=== PATIENT | female | born 1975 | race Caucasian/White ===

== ENCOUNTER 2025-04-08 16:04 | Inpatient (IN) | payer MEDICAID ==
[~2025-04-08] VITALS: Ht 170.2 cm; Wt 86.4 kg
--- NOTE | 2025-04-08 17:04 | ELECTROCARDIOGRAPH REPORT ---
[facility] Test Date: 2025-04-08 Test Time: 17:02:21 Pat Name: SELINA CLIFTON Department: [facility]- Patient ID: [id number] Room: Gender: F Records Management Assistant: : 1975 Requested By: NORA CADENA Order Number: [id number] Reading MD: Measurements Intervals [place] Rate: 104 P: 40 NE: 137 QRS: 58 QRSD: 122 T: 49 QT: 355 QTc: 467 Interpretive Statements Sinus tachycardia IVCD, consider atypical RBBB Abnormal inferior Q waves Please click the below link to view image of tracing.
--- NOTE | 2025-04-08 17:25 | RADIOLOGY REPORT ---
CHEST RADIOGRAPH REASON FOR EXAM: Chest pain COMPARISON: None TECHNIQUE: One view of the chest is provided FINDINGS: The cardiomediastinal silhouette is borderline enlarged. There is pulmonary venous congesti on. There is no significant airspace disease. There is no large pleural effusion. There is no pneumo thorax. No acute osseous abnormality is identified. IMPRESSION: Borderline cardiomegaly with pulmonary venous congestion. Correlate clinically for possible cardiac decompensation.
--- NOTE | 2025-04-08 18:27 | Physician Documentation ---
History of Present Illness ~ Chief Complaint: Leg Pain Stated Complaint: TRANSFER Time Seen by MD: 17:44 Source: patient Mode of Arrival: EMS Exam Limitations: no limitations HPI Patient presented as a transfer from [facility] for cellulitis/sepsis. Was treated with 30 mL per kg of normal saline and given vancomycin and Zosyn at [facility]. States three days ago she got quite intoxicated and fell asleep. When she woke up she could not move well and had [place]. She has chronic venous stasis ulcers and has had bilateral lower extremity ablations secondary to venous insufficiency with Dr. Ricks. She has been battling lower extremity wounds to the bilateral shins. Denies fevers, chills. No chest pain or shortness for breath. Complains of dizziness since episode three days ago wh ere she had difficulty getting up. At [facility] she was found to be tachycardic and underwent a CT angio to rule out PE. There was an incidental finding of nodular regions around the circumflex and LAD arteries consistent with coronary aneurysms. She was therefore sent for further evaluation and cardiology consultation. States past medical history significant for heart failure diagnosed many years ago. History of venous insufficiency status post bilateral lower extremity ablation with chronic nonhealing wounds to the bilateral lower extremities. Complains of dizziness. Complains of pain to the lower extremities. No chest pain or pressure. No shortness a breath. Was asked, but otherwise denies review of systems currently. Tetanus witin 5 years: Yes Medication Reconciliation Allergies: Coded Allergies: ibuprofen (Verified Allergy, Unknown, 04/08/25) latex (Verified Allergy, Unknown, 04/08/25) shellfish derived (Verified Allergy, Unknown, 04/08/25) Scheduled Lisinopril* (Lisinopril*), 1 TAB PO DAILY, (Reported) Past Medical History Past Medical History: *CARDIOVASCULAR*, Congestive Heart Failure, Valve Insuffciency Other Past Surgical History: She has had venous ablation on bilateral lower extremities. Facial reconst Alcohol Use: Occasionally Drug Use: none Review of Systems ROS Patient complains of dizziness, weakness, fevers, lower extremity cellulitis, nonhealing wounds. No chest pain or pressure. No shortness a breath. Was asked, but otherwise denies review of systems. Physical Exam Vital Signs: RN Vital Signs have been reviewed: Yes, Temperature: 101.8, Source: Oral, Heart Rate: 108, Respiratory Rate: 16, BP: 125/75, Pulse Oximetry: 93, Weight: 86.360 Pulse Oximetry Reflects: adequate oxygenation Physical Exam General: Awake, alert, oriented. No apparent distress Neck: Supple. Normal range of motion. No JVD Respiratory: Lungs are clear to auscultation bilaterally. No respiratory distress. Chest: Normal shape and size. No accessory muscle use. Cardiovascular: Regular rate. Tachycardic.. S1-S2. No murmur, gallop, rub. Gastrointestinal: Abdomen is soft. Nontender to palpation. Bowel sounds present. Extremities: Bilateral lower extremities are tender to palpation. Dorsalis pedis pulses are plus two bilaterally. There is a 2x2 in circular wounds with no purulent drainage to the anterior shins. Neurologic: Alert and oriented x4. Nonfocal Psychiatric: Normal mood and affect. Skin: Normal color. Warm and dry. Progress Results/Orders Results/Orders Orders - LAILA BARTHOLOMEW [employer]DER Culture Blood (04/08/25 18:24) Recheck Temp (04/08/25 ) Normal Saline 1000ml (0.9% Sodium Chlori (04/08/25 19:10) Page Hospitalist (04/08/25 19:58) Fill Out Med Reconciliation (04/08/25 19:58) Completed Orders - LAILA BARTHOLOMEW [employer] Procalcitonin (04/08/25 18:24) Lacticsepsis (04/08/25 18:24) Drug Screen, Urine (04/08/25 18:24) Morphine 2mg/Ml Inj. (Morphine Inj.) (04/08/25 18:30) Medications Received in ER Medications (Trade) Dose Ordered Sig/Jeffery Route PRN Reason Start Time Stop Time Status Last Admin Dose Admin (morphine inj.) 2 mg ONCE ONCE IV 04/08/25 18:30 04/08/25 18:42 DC 04/08/25 19:03 2 MG Sodium Chloride 1,000 ml @ 100 mls/hr Q10H ONCE IV 04/08/25 19:10 04/09/25 05:09 04/08/25 19:55 100 MLS/HR Vital Signs 04/08/25 04/08/25 04/08/25 8/29/25 16:07 17:10 17:12 19:03 Temp 101.8 Pulse 103 108 Resp 20 21 16 20 B/P (MAP) 131/75 125/75 (92) Pulse Ox 93 93 04/08/25 04/08/25 04/08/25 19:10 19:41 20:16 Temp 98.8 96.6 Pulse 107 92 Resp 19 21 15 B/P (MAP) 120/74 (89) 114/71 (85) Pulse Ox 98 97 Laboratory Tests Test 04/08/25 17:05 04/08/25 19:38 Urine Opiates Screen Negative Urine Methadone Screen Negative Urine Fentanyl Screen Negative Urine Barbiturates Screen Negative Urine Phencyclidine Screen Negative Urine Amphetamines Screen Positive Urine Benzodiazepines Screen Negative Urine Cocaine Screen Negative Urine Cannabinoids Screen Negative Drug Screen Comment White Blood Count 12.4 H Red Blood Count 3.98 L Hemoglobin 12.8 Hematocrit 38.0 Mean Corpuscular Volume 95.5 Mean Corpuscular Hemoglobin 32.1 H Mean Corpuscular Hemoglobin Concent 33.6 Red Cell Distribution Width 14.4 Platelet Count 127 L Mean Platelet Volume 8.6 Neutrophils (%) (Auto) 82.6 H Lymphocytes (%) (Auto) 10.8 L Monocytes (%) (Auto) 6.5 Eosinophils (%) (Auto) 0 Basophils (%) (Auto) 0.1 Neutrophils # (Auto) 10.2 H Lymphocytes # (Auto) 1.3 Monocytes # (Auto) 0.8 Eosinophils # (Auto) 0.0 Basophils # (Auto) 0.0 CBC Comment Sodium Level 133 L Potassium Level 3.6 Chloride Level 98 L Carbon Dioxide Level 23.1 L Anion Gap 12 Blood Urea Nitrogen 33 H Creatinine 2.10 H Estimated GFR/1.73 m2 25 BUN/Creatinine Ratio 15.7 Glucose Level 113 H Lactic Acid Level 2.1 H Calcium Level 8.1 L Albumin 2.5 L Procalcitonin 2.11 H Chemistry Comments Medical Decision Making Findings Patient with past medical history significant for venous insufficiency and chronic nonhealing wounds to lower extremities presents secondary to lower extremity pain, dizziness. Initially presented to [facility]. Records were reviewed. She noticed increased swelling to the lower extremities worsening over the past three days. States history of venous insufficiency status post ablations in the past. Known history of recurrent cellulitis. She was found to be tachycardic, febrile with an elevated white count. Lactic acid initially was found to be 3.4. Received IV fluids 30 mL/kilogram at [facility] and lactic acid trended down. Repeat lactic acid was 2.1. She received vancomycin and Zosyn to treat her infection and was transferred for higher level of care. She was transferred secondary to an incidental finding on a CT scan. She did have tachycardia and elevated D-dimer. A CTA was therefore performed to rule out a pulmonary embolism. Fortunately, there was no pulmonary embolism that there was an incidental finding of coronary aneurysms as noted in HPI. Was transferred for further evaluation and management. Itching at [facility] included a vascular ultrasound that did not show a definite DVT. She underwent a CTA that was negative for pulmonary embolism but incidental finding of a 16 mm x 13 mm enhancing nodule in the region of the circumflex as well as a nodule measuring about 13 mm in the area of the left anterior descending. Consumer Affairs Manager recommended coronary CT. She has denied chest pain or pressure. No shortness a breath. Does complain of lower extremity pain which has not been treated. He is febrile on arrival. We will recheck temperature. Was found to have a white count of 12.1. Hemoglobin 14.1. Hematocrit 40.6. Platelet count 135. D-dimer 1.98. Sodium 132. Potassium 3.5. Chloride 97. CO2 20. Anion gap 15. BUN 37. Creatinine 2.59. ALT 56. AST 108. Alk-phos 113. Initial lactic acid 4.30, 3.40. Trended down to 2.1. The case was discussed with the attending physician, Akil. The plan of care, diagnostic evaluation and medical decision making were discussed. The attending physician was available for consultation, where the diagnostic findings as well as the eventual disposition. Case was reviewed with hospitalist/resident who agrees to evaluate patient for admission to the hospital. Departure Time of Disposition: 19:10 Disposition: 09 ADMITTED INPATIENT Admitted to Inpatient Unit: to hospitalist Admission Level of Care: PCU with Tele Impression: Primary Impression: Cellulitis Qualified Codes: L03.119 - Cellulitis of unspecified part of limb Additional Impressions: Sepsis Qualified Codes: A41.9 - Sepsis, unspecified organism; R65.20 - Severe sepsis without septic shock; N17.9 - Acute kidney failure, unspecified Acute kidney injury Hyponatremia Coronary aneurysm Referrals: NO PRIMARY CARE PROVIDER (PCP) Signature Scribe Signature: No scribe Attestation: The note accurately reflects work and decisions made by me.Laila Bartholomew - ELLY 04/08/25 21:43 LAILA BARTHOLOMEW NP Apr 08, 2025 18:27
[2025-04-08 19:02] LABS: URINE AMPHETAMINE SCREEN POSITIVE (Neg); URINE BARBITUATE SCREEN NEGATIVE (Neg); URINE BENZODIAZEPINES SCREEN NEGATIVE (Neg); URINE CANNABINOID SCREEN NEGATIVE (Neg); URINE COCAINE SCREEN NEGATIVE (Neg); URINE METHADONE SCREEN NEGATIVE (Neg); URINE OPIATE SCREEN NEGATIVE (Neg); URINE PHENCYCLIDINE SCREEN NEGATIVE (Neg)
[2025-04-08 19:50] LABS: MEAN PLATELET VOLUME 8.6 FL (7.4-10.4); RED CELL DISTRIBUTION WIDTH 14.4 % (11.5-14.5)
[2025-04-08] MEDS: normal saline 1000ml 1,000 ML IV ONE (19:55)
[2025-04-08 20:00] LABS: CREATININE 2.10 MG/DL (0.40-0.90); TOTAL CARBON DIOXIDE 23.1 MMOL/L (24-32); eCRCL 31 ML/MIN; eGFR 25 ML/MIN
[2025-04-08] MEDS ORDERED: magnesium sulf-water 2g/50mL 50 ML IV PRN (20:15)
[2025-04-08] MEDS ORDERED: ondansetron/PF 4mg/2ml inj IV PRN (20:15)
[2025-04-08] MEDS ORDERED: potassium Cl 40MEQ/1/2NS 520ml 520 ML IV PRN (20:15)
[2025-04-08] MEDS ORDERED: potassium Cl 20 mEq SR tablet PO PRN (20:15)
[2025-04-08] MEDS ORDERED: magnesium sulf-water 4G/100mL 100 ML IV PRN (20:15)
[2025-04-08] MEDS ORDERED: magnesium Cl slow-release 64mg tablet PO PRN (20:15)
[2025-04-08] MEDS ORDERED: LISI40TA20 PO (20:16)
--- NOTE | 2025-04-08 21:17 | HISTORY AND PHYSICAL-Residence ---
History & Physical Providers to CC Resident Creating Document: WESLY REYESVANIRACHEL ~ History of Present Illness Reason for Admit\Complaint: Chronic venous ulcer, left leg cellulitis, coronary aneurysm History of Present Illness This is a 49-year-old female with past medical history of hypertension, congestive heart failure, vertigo, bilateral chronic venous insufficiency status post bilateral ablation of the veins with chronic venous ulcer who transferred from [facility] in view of left leg cellulitis, bilateral lower limb chronic venous ulcer and incidentally detected coronary aneurysm. She noticed that her symptoms started 3 days ago when she got intoxicated on a motor boat and fell asleep. When she woke up she had excruciating pain in bilateral lower limbs and could not move her legs. She rates the pain 10/10, sharp, radiating up to her thighs, which aggravates when she keeps her feet down the bed and tries to walk. She also complains of red rashes on the lateral aspect of her left leg. No complaints of fever, nausea, vomiting, dizziness. She has multiple nonhealing venous ulcers on her bilateral lower legs associated with swelling and redness since 6 months. Known history of recurrent cellulitis. At [place] her lactic acid was 4.3 and she was treated with 30 mL per kg of normal saline and given vancomycin and Zosyn. At [facility] she was found to be tachycardic elevated D-dimer and underwent a CT angio to rule out PE. There was no PE but There was an incidental finding of nodular regions around the circumflex and LAD arteries consistent with coronary aneurysms. Bilateral lower limb ultrasound was done to rule out DVT. She was therefore sent for further evaluation and cardiology consultation. She complains of heartburn. No complaints of chest pain, palpitation, dizziness, shortness of breath. Allergies: Coded Allergies: ibuprofen (Verified Allergy, Unknown, 04/08/25) latex (Verified Allergy, Unknown, 04/08/25) shellfish derived (Verified Allergy, Unknown, 04/08/25) Home Medications Home Medications Active Reported Lisinopril* (Lisinopril) 40 Mg Tablet 1 Tab PO DAILY 30 Days Past Medical History Past Medical History CHF Hypertension Vertigo Bilateral chronic venous insufficiency status post bilateral ablation of veins Chronic venous ulcers Peripheral neuropathy Past Surgical History Surgical History Comment Bilateral chronic venous insufficiency status post ablation Repair of Orbital fracture after a mechanical fall Past Social History Smoking: Cigarettes (1-2 cigarettes a day) Alcohol Use: Abuse (4-5 beers a day, get shaky sometimes without alcohol) Drug Use: None Lives with: Alone Lives In: Homeless Occupation: unemployed Domestic Violence: Neg ROS Constitutional: Reports: no symptoms reported Eyes: Reports: no symptoms reported ENT: Reports: no symptoms reported Respiratory: Reports: no symptoms reported Cardiovascular: Reports: no symptoms reported Gastrointestinal: Reports: no symptoms reported Genitourinary: Reports: no symptoms reported Female Genitalia: Reports: no reported symptoms Neurological: Reports: no symptoms reported Musculoskeletal: Reports: swelling Integumentary: Reports: rash Allergic/Immunologic: Reports: no symptoms reported Hematologic/Lymphatic: Reports: no symptoms reported Endocrine: Reports: no symptoms reported Psychiatric: Reports: no symptoms reported Exam Vitals: Vital Signs Date Time Temp Pulse Resp B/P (MAP) Pulse Ox O2 Delivery O2 Flow Rate FiO2 04/08/25 20:16 96.6 92 15 114/71 (85) 97 General: General: Well alert, well oriented, not confused, not agitated, not in acute distress, well cooperated during the physical. HEENT: Conjunctive are pink, sclerae clear, no icterus, pupil is equal in both sides, reactive to light, no ear discharge, no pharyngeal erythema or an edema. Neck: Supple, no JVD, no lymphadenopathy and thyromegaly. Chest: Equal air entry on both lungs, no added sounds, no wheeze. Cardiovascular: S1-S2 regular sinus rhythm and, regular rate, no gallops, no rubs, no murmurs Abdomen: No visible peristalsis, Bowel sounds present on auscultation, soft, nontender, no guarding, no rigidity Extremities: No obvious deformities, no pitting edema bilaterally, capillary refill intact, peripheral pulsations are intact on both sides Central Nervous System: No focal neurological deficits, no motor or sensory weakness in all 4 extremities, could move all 4 extremities, 2+ deep tendon reflexes, negative Babinski. Musculoskeletal: No joint swelling, deformities, inflammations, and no scoliosis and back tenderness Skin: Left le venous ulcer, 5 x 4 cm noted on the anterior aspect of the fierro. Associated with lipodermatosclerosis, redness, swelling. Right le venous ulcer 3-4 cm noted on the lateral aspect of the fierro. Associated with lipodermatosclerosis, redness, swelling. One scar of healed ulcer noted on the medial aspect of the fierro. Diagnostic Data Last Recorded Lab Results: 04/08/25193704/08/251937 Counseling Services Smoking & Tobacco Cessation: > 10 Minutes Advance Care Planning Advanced Care plannin - 30 Minutes (Full code) Additional Plan Assessment: This is a 49-year-old female with past medical history of hypertension, congestive heart failure, vertigo, bilateral chronic venous insufficiency status post bilateral ablation of the veins with chronic venous ulcer who transferred from [facility] in view of left leg cellulitis, bilateral lower limb chronic venous ulcer and incidentally detected coronary aneurysm. Plan: Left leg cellulitis Bilateral lower limb chronic venous ulcer Chronic venous insufficiency status post bilateral ablation 6 months ago Patient meets severe sepsis criteria (heart rate> 90, respiratory rate >20, WBC greater>40466, suspected source of infection, lactic acidosis) Bilateral chronic venous ulcer, lipodermatosclerosis, redness, sharp pain, swelling Vitals: Pulse 100, blood pressure 115/70, respiratory rate in 20s D-dimer elevated in [place], underwent CTA-PE ruled out Ultrasound in [place]'s rule out DVT Lactic acidosis downtrending from 4.3-3.4-2.1, current lactic acid 1.4 Treated with 30 mL/hour IV fluids, vancomycin and Zosyn [place] WBC 12.4 with neutrophilia. Procalcitonin 2.11 Ordered arterial doppler to rule out PVD. Plan: Continue antibiotics vancomycin 1 g IV Q 12 H, Zosyn 3.37 g IV q.8h IV fluids 30 mL/hour Ordered ESR CRP, blood culture, wound care. Congestive heart failure Primary Hypertension EKG: Sinus rhythm, tachycardia, no ST segment changes, normal T-wave morphology Chest x-ray:orderline cardiomegaly with pulmonary venous congestion. Correlate clinically for possible cardiac decompensation. Ordered echo, HbA1c, lipid level, NT proBNP. Continue home medication lisinopril 40 mg p.o. daily Incidentally detected coronary aneurysm Incidental finding of a 16 mm x 13 mm enhancing nodule in the region of the circumflex as well as a nodule measuring about 13 mm in the area of the left anterior descending. No active chest pain, palpitation, diaphoresis, nausea. Complaints of heartburn, most likely due to alcohol consumption. Cardiology consultation tomorrow morning Alcohol use disorder Methamphetamine use disorder Homelessness On moderate alcohol withdrawal protocol Urine tox positive for methamphetamine Ordered drug abuse social worker and substance use navigator Ordered Ethyl alcohol level KAIN may be secondary to infection/dehydration Serum creatinine 2.1, BUN 33, EGFR 25 Baseline creatinine unknown IV fluids 30 mL/hour Ordered urine osmolality, serum osmolality, urine sodium to determine FeNa Code status: Full code DVT prophylaxis: SCDs Analgesia/sedation: Morphine/[place] p.r.n. Line/tube: PIV GI prophylaxis: Protonix 40 mg p.o. daily Nutrition: Heart healthy PT: Ordered. Prognosis: Guarded Disposition: Admit to PCU/telemetry. Substance use navigator and social Service ordered Jamie Reyes MD PGY1, Internal Medicine [facility] Addendum I saw and discussed the pt with the resident team and agree with assessment and plan as documented Date of Service: Apr 08, 2025 Billing Provider: EMIR KELLEY MD, SHIVANI, [facility] Apr 08, 2025 21:17 EMIR KELLEY MD Apr 09, 2025 07:25
[2025-04-08] MEDS: HYDROcodone/acetaminophen 5mg/325mg tablet PO PRN (23:15)
[2025-04-08 23:22] LABS: INR 1.0 INR
[2025-04-08] MEDS: normal saline 1000ml 1,000 ML IV SCH (23:36)
[2025-04-08 23:43] LABS: CHOL/HDL RATIO 5.3 (0.00-4.99); LDL CHOLESTEROL 81 MG/DL (50-100); PRO BRAIN NATRIURETIC PEPTIDE 228 PG/ML (0-125)
[2025-04-08 23:44] LABS: OSMOLALITY 285 MOSM/K (280-300)
[2025-04-08 23:51] LABS: ETHANOL < 10 MG/DL (<10)
[2025-04-09] VITALS (8 sets, daily range): BP systolic 99–130; BP diastolic 66–76; PULSE 78–84; RESP 14–22; TEMP 97.5–97.8; O2SAT 96–98
[2025-04-09] MEDS: vancomycin/NS 1 GM ADD-VANTAGE 250 ML IV ONE (01:29)
[2025-04-09] MEDS: piperacillin/tazo 3.375gm/50ml 50 ML IV ONE (03:58)
[2025-04-09 06:23] LABS: MEAN PLATELET VOLUME 8.6 FL (7.4-10.4); RED CELL DISTRIBUTION WIDTH 14.5 % (11.5-14.5)
[2025-04-09 06:51] LABS: CREATININE 1.48 MG/DL (0.40-0.90); TOTAL CARBON DIOXIDE 22.2 MMOL/L (24-32); eCRCL 44 ML/MIN; eGFR 37 ML/MIN
[2025-04-09] MEDS: potassium Cl 20 mEq SR tablet PO PRN (07:26)
[2025-04-09] MEDS: pantoprazole 40mg Tablet.DR PO SCH (07:26)
[2025-04-09] MEDS: docusate sod 100mg capsule PO SCH (07:26)
[2025-04-09] MEDS: ringers solution, lacted 1,000 ML IV SCH (07:30)
[2025-04-09] MEDS: K and/or MAG REPLACEMENT MC SCH (08:00)
--- NOTE | 2025-04-09 13:53 | VASCULAR REPORT ---
EXAM: VASC VL ARTERIAL INDICATION: Pa in TECHNIQUE: Grayscale and color Doppler sonographic imaging evaluation of the right and left lower ext remity arterial system was performed COMPARISON: None available at the time of dictation. FINDINGS: RIGHT LOWER EXTREMITY ARTERIES: Common femoral artery: 96 cm/s, triphasic Deep femoral artery: 54 cm/s, triphasic Proximal femoral artery: 93 cm/s, triphasic Mid femoral artery: 81 cm/s, triphasic Distal femoral artery: 67 cm/s, triphasic Popliteal artery: 59 cm/s, triphasic Posterior tibial artery: 72 cm/s, triphasic Dorsalis pedis artery: 53 cm/s, triphasic LEFT LOWER EXTREMITY ARTERIES: Common femoral artery: 101 cm/s, triphasic Deep femoral artery: 104 cm/s, triphasic Proximal femoral artery: 101 cm/s, triphasic Mid femoral artery: 95 cm/s, triphasic Distal femoral artery: 97 cm/s, triphasic Popliteal artery: 61 cm/s, triphasic Posterior tibial artery: 74 cm/s, triphasic Dorsalis pedis artery: 34 cm/s, triphasic REFERENCE VALUES: Normal velocity ranges (in cm/sec) are as follows: DECORATING CONSULTANT 95-140, SFA 75-105, popliteal 54-84, tibial 41-81 cm/sec. Stenosis categories: 1.5-2.0 x normal velocity = 30-49%, 2.0-4.0 x normal velocity = 50-75%, >4.0 x normal velocity = >75%. No ankle-brachial index was obtained secondary to patient patent. Left groin lymph nodes with the la rgest measuring up to 3.2 cm. IMPRESSION: 1. No sonographic evidence of a lower extremity arterial occlusion. Velocities as above.
--- NOTE | 2025-04-09 14:39 | RADIOLOGY REPORT ---
EXAM: MR MRI LOWER EXTREMITY RIGHT INDICATION: chronic wounds and elevated ESR, r/o osteomyelitis, tib/fib TECHNIQUE: Multiplanar, multisequence imaging of the right lower extremity without contrast COMPARISON: None FINDINGS: BONES: No MR evidence of an acute fracture, osseous contusion, or aggressive focal osseous lesion no abnormal bone marrow edema of the suggest osteomyelitis. In the area of concern, minimal soft tissue edema most likely compatible with cellulitis. Additional edema along the lateral margin of the distal calf reactive versus related to cellulitis. No drainable fluid collection MUSCLES: Inconspicuous feathery muscle edema of the proximal soleus, medial and lateral heads of the gastrocnemius which may be compatible with reactive myositis. TENDONS: Intact. LIGAMENTS: Intact. JOINT SPACES: No joint effusion. NEUROVASCULAR: Normal. OTHER: None. IMPRESSION: 1. No MR evidence of osteomyelitis. 2. Presumed reactive myositis of the posterior compartment of the calf. 3. Cellulitis /fasciitis without drainable fluid collection.
[2025-04-09] MEDS: vancomycin/NS 1 GM ADD-VANTAGE 250 ML IV SCH (14:54)
--- NOTE | 2025-04-09 15:18 | RADIOLOGY REPORT ---
EXAM: MR MRI LOWER EXTREMITY LEFT INDICATION: chronic wounds and elevated ESR, r/o osteomyelitis, tib/fib TECHNIQUE: Multiplanar, multisequence imaging of the left COMPARISON: MR MRI LOWER EXTREMITY RIGHT on DOS: 04/09/25 FINDINGS: BONES: No MR evidence of an acute fracture, osseous contusion, or aggressive focal osseous lesion. No MR evidence of osteomyelitis. MUSCLES: Feathery muscle edema along the posterior margin of the soleus and inferior margin of the me dial head of the gastrocnemius. TENDONS: Intact. LIGAMENTS: Intact. JOINT SPACES: No joint effusion. NEUROVASCULAR: Normal. OTHER: Extensive surrounding subcutaneous tissue edema without definitive drainable fluid collection. Overall imaging findings may be compatible with cellulitis/fasciitis and underlying reactive myosit is. IMPRESSION: 1. No MR evidence of osteomyelitis. 2. Cellulitis/fasciitis. No drainable fluid collection/abscess. 3. Favor reactive myositis.
[2025-04-09] MEDS: HYDROcodone/acetaminophen 10/325mg tab PO PRN (16:55)
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
[2025-04-09] MEDS: piperacillin/tazo 3.375gm/50ml 50 ML IV SCH ×2 (20:40)
[2025-04-10] VITALS (8 sets, daily range): BP systolic 105–123; BP diastolic 64–85; PULSE 73–77; RESP 12–22; TEMP 97.4–98.2; O2SAT 95–98
[2025-04-10] MEDS: VANCOMYCIN LEVEL IV ONE (01:30)
[2025-04-10 02:50] LABS: APTT 30 SECONDS (22-32)
[2025-04-10 02:55] LABS: MEAN PLATELET VOLUME 9.7 FL (7.4-10.4); RED CELL DISTRIBUTION WIDTH 14.9 % (11.5-14.5)
[2025-04-10 02:57] LABS: CREATININE 1.01 MG/DL (0.40-0.90); TOTAL CARBON DIOXIDE 24.3 MMOL/L (24-32); eCRCL 64 ML/MIN; eGFR 58 ML/MIN
[2025-04-10 03:34] LABS: BANDS% (MANUAL) 1.0 % (0-10); LYMPHOCYTES % (MANUAL) 17.0 % (21-51); MONOCYTES % (MANUAL) 7.0 % (2-12); NEUTROPHILS % (MANUAL) 75.0 % (42-75); PLATELET ESTIMATE DECREASED
[2025-04-10 08:57] LABS: LEUKOCYTE ESTERASE ,URINE NEGATIVE (Neg); NITRITES, URINE NEGATIVE (Neg); OCCULT BLOOD,URINE TRACE-INTACT (Neg)
[2025-04-10 09:05] LABS: UA COLLECTION TYPE NON-SPECIFIED
[2025-04-10 09:07] LABS: MUCUS STRANDS NONE SEEN /LPF (Neg); SQUAMOUS EPITHELIAL CELL,UR MANY /LPF (FEW); YEAST MODERATE /HPF (NEGATIVE)
[2025-04-10 09:08] LABS: OSMOLALITY UA 652.0 MOSM/K (50-1400)
[2025-04-10 09:09] LABS: CREATININE,URINE RANDOM 119.0 MG/DL
[2025-04-10 14:40] LABS: C DIFF SPECIMEN=DIARRHEA? ACCEPTABLE; C DIFFICILE TOXINS A&B NEGATIVE (Neg)
[2025-04-10 14:41] LABS: C DIFF ANTIGEN SEE COMMENTS (NEGATIVE)
--- NOTE | 2025-04-10 14:43 | RADIOLOGY REPORT ---
Procedure: CT CT LOWER EXTREMITY 04/10/2025 10:40 AM Indication: left LE. Hip to toes,worsening erythema and ain Comparison Study: MR MRI LOWER EXTREMITY LEFT on DOS: 04/09/25, MR MRI LOWER EXTREMITY RIGHT on DOS: Technique: Axial CT images were obtained of the left lower extremity and reformatted in coronal and s agittal planes. All CT scans at this medical facility are performed using dose modulation techniques as appropriate to a performed exam including the following: Automated exposure control was utilized; adjustment of the MA and/or KV according to patient size; and use of iterative reconstruction technViewpoint ue. CT Dose: CTDI volume is 16.76+ 16.76+ 0.14 mGy. Dose-length product is 1757.61 mGy*cm FINDINGS: Bones: Normal mineralization alignment. There is no acute fracture. No focal osteopenia or cortical destruction to suggest osteomyelitis. Soft tissues: There is mzst-oe-mlqckubq subcutaneous edema within the left lower extremity and mild s ubcutaneous edema in the visualized right lower extremity. Muscle bundles about the Left lower extrem ity are intact. There is no soft tissue gas or loculated fluid collection. There are mildly enlarged left inguinal lymph nodes, favored to be reactive. There are scattered phleboliths in the anterior l eft fierro. There is a small left knee joint effusion. There is osteoarthritic changes of the left knee , tricompartment osteophyte formation. There is moderate lateral patellofemoral compartment joint spa ce narrowing and oagh-jn-dyph articulation of the lateral most aspect. Moderate medial compartment chiquis int space narrowing. There is a small right knee joint effusion. The muscle bundles about the Right lower extremity that is visualized are intact. No soft tissue gas or fluid collection in the visualized right lower extrem ity. In the pelvis, the visualized bowel loops are normal caliber. The visualized uterus is grossly unrema rkable. The urinary bladder is mildly distended. There are enlarged left external iliac lymph nodes for example series 2, image 15. IMPRESSION: 1. No acute osseous abnormality or evidence of osteomyelitis. 2. Moderate subcutaneous edema within the left lower extremity which could reflect cellulitis. No so ft tissue gas or well-formed fluid collection to suggest abscess. 3. Small jrrmr-jtidiqa-xbga-left knee joint effusions. 4. Degenerative changes of the bilateral knees. There is focal pkdp-ne-hugh articulation in the late ral most patellofemoral compartment on the left. 5. Enlarged left inguinal and left external iliac lymph nodes, indeterminate though may be reactive.
--- NOTE | 2025-04-10 15:07 | CARDIOLOGY REPORT ---
APPROVED REPORT EXAM: Comprehensive 2D, Doppler, and color-flow Echocardiogram. Patient Location: 3[address] Blood Pressure: 130/76 mmHg Heart Rate: 93 bpm Rhythm: Sinus Rhythm Indications Congestive Heart Failure Sepsis Acute Kidney Injury Hypertension Left Leg Cellulitis Alcohol, Meth Use [place] Kay Stitcher: Sofia FERNANDEZ DO (Consult) Previous echo: None Echo Enhancing Agent Comments: Technically suboptimal study 2D Dimensions RVDd 3.3 cm LA Diam4.2 cm LVOT Diameter 1.95 (1.8-2.4cm) IVC 16.62 mm CO 8.4 L/min M-Mode Dimensions RVDd 2.80 (2.1-3.2cm) Left Atrium(MM) 4.49 (2.5-4.0cm) IVSd 1.18 (0.7-1.1cm) LVDd 5.51 (4.0-5.6cm) Aortic Root 3.17 (2.2-3.7cm) PWd 1.18 (0.7-1.1cm) Aortic Cusp Exc 2.14 (1.5-2.0cm) IVSs 1.22 cm MV EPSS 0.6 (<0.5cm) LVDs 3.70 (2.0-3.8cm) FS (%) 33 % PWs 1.42 cm ESV(Teich) 58.2 ml LVEF(%) 61 (>50%) Aortic Valve AoV Peak Alon. 187.2 cm/s AoV VTI 28.5 cm AO Peak GR. 14.0 mmHg AO Mean GR. 7 mmHg LVOT VTI 21.96 cm LVOT Peak Alon. 144.7 cm/s CABRERA(VTI)/BSA 2.30 cm2/m2 CABRERA (VTI) 2.30 cm2 Mitral Valve MV E Velocity 85.4 cm/s MV Peak Gr. 5 mmHg MV DECEL TIME 200 ms MV A Velocity 98.5 cm/s MV Mean Gr. 2 mmHg MV PHT 64 ms E/A Ratio 0.9 MVA (PHT) 3.44 cm2 MV TPja729.7 cm/sMV VMean60.0 cm/s MVA VTI3.03 cm2MV VTI21.6 cm TDI Medial E' P. V 12.36 cm/s E/Medial E' 6.9 Tricuspid Valve TR P. Velocity 274 cm/s RAP ESTIMATE 10 mmHg TR Peak Gr. 30 mmHg RVSP 40 mmHg LEFT VENTRICLE Normal LV size and wall thickness. Overall systolic looks normal. Overall LVEF estimated at 60%. RIGHT VENTRICLE Right ventricle size and function look normal. Estimated PA systolic pressure is 40 mmHg. ATRIA Left atrium is mildly dilated. The right atrium size appears to be grossly normal. AORTIC VALVE Trileaflet AV without stenosis or insufficiency. MITRAL VALVE reasonably normal-appearing MV. Trace regurgitation. TRICUSPID VALVE TV appears structurally normal with trace regurgitation. GREAT VESSELS The aortic root is normal in size. The IVC is normal in size and collapses >50% with inspiration. PERICARDIUM Normal pericardium. No pericardial effusion seen. Other Information Study Quality: Fair
--- NOTE | 2025-04-10 15:55 | PROGRESS NOTE ---
Progress Note Cardiology Providers to CC ~ Subjective Subjective Feels better today. Objective Vitals 105/64 67 Result Diagram: 04/10/25 01504/10/25152 Objective 2dE Coagulation Studies Laboratory Tests Test 04/08/25 19:38 04/10/25 01:53 Prothrombin Time 9.9 SECONDS (9.0-12.0) INR International Normalized Ratio 1.0 INR Activated Partial Thromboplast Time 30 SECONDS (22-32) Coagulation Comments Other Results 2DE shows normal LV function and no significant valvular problems. Chems suggest she still needs crystalloid volume replacement. Problem\Assessment\Plan Additional Plan Recommend at least one more day of fluids repletion. Follow up with me in next 2-3 weeks. PANCHITO FERNANDEZ DO Apr 10, 2025 15:55
--- NOTE | 2025-04-10 17:26 | PROGRESS NOTE- Residence ---
Progress Note - Resident Providers to CC Resident Creating Document: PATRICIA SPENCE RES CC: DARLENE BAEZ MD ~ Antibiotic Timeout Antibiotic Ordered?: Yes Subjective Patient seen and examined today. Patient complains of pain that has moving upwards into the groin on the left side. Patient has pus filled wounds on bilateral knees. Objective Vital Signs Date Time Temp Pulse Resp B/P (MAP) Pulse Ox O2 Delivery O2 Flow Rate FiO2 04/10/25 14:38 97.9 77 13 105/64 (78) 95 Room Air 04/09/25 08:00 0.0 21 Result Diagram: 04/10/2515204/10/25 0153 General: Alert, awake, oriented, not in acute distress HEENT: PERRLA, no icterus, pallor, lymphadenopathy, carotid bruit Respiratory system: Bilateral vesicular breath sounds heard, no adventitious breath sounds CVS: S1-S2 heard, no murmurs/rubs/gallop GI: Soft, nontender, no organomegaly, no guarding/rigidity, bowel sounds present Neuro: No focal neurological deficits present Extremities: 3+ edema present on the left lower extremity, 2+ pedal edema present in the right lower extremity, erythema with beefy red appearance, swelling and tenderness present on the posterior surface of the lower extremity spreading up to the knee and going upwards (redness improved). Bilateral about 3-4 cm wounds present with pus drainage on the lower part of shins. Multiple ulcers at various healing stages present. Skin: Warm and dry Coagulation Studies Laboratory Tests Test 04/08/25 19:38 04/10/25 01:53 Prothrombin Time 9.9 SECONDS (9.0-12.0) INR International Normalized Ratio 1.0 INR Activated Partial Thromboplast Time 30 SECONDS (22-32) Coagulation Comments Assessment Assessment This is a 49-year-old female with past medical history of hypertension, congestive heart failure, vertigo, bilateral chronic venous insufficiency status post bilateral ablation of the veins with chronic venous ulcer who transferred from [facility] in view of left leg cellulitis, bilateral lower limb chronic venous ulcer and incidentally detected coronary aneurysm. Admitted for further management Plan Plan Sepsis secondary to bilateral lower extremity cellulitis Bilateral chronic lower extremity nonhealing ulcers History of bilateral venous ablation for venous insufficiency No osteomyelitis DVT, ruled out Continue Zosyn 3.375 g IV q.8h and IV vancomycin (day 2) Wound cultures positive for Gram-positive cocci Follow up with the wound cultures Continue LR at 100 cc/hour Arterial ultrasound: No sonographic evidence of a lower extremity arterial occlusion. Velocities as above. Incidentally detected coronary artery aneurysms Positive methamphetamine Continue IV fluid resuscitation and follow up with Dr. Guerrier in the next 2-3 weeks. Appreciate recommendations. Mild hyponatremia, improving Prerenal KAIN on CKD, most likely secondary to renal tubular stasis, improving Likely due to volume depletion Continue Ringer's lactate at 100 cc/hour FENa: 0.2%, urine sodium: 26-indicating prerenal Continue potassium replacement as per protocol Hyperlipidemia ASCVD risk score 6.6% Creatinine kinase negative, started on atorvastatin 40 mg once daily Will start statin if creatinine kinase negative Hypertension Takes lisinopril at home Hold medication as blood pressure is well-controlled without lisinopril EF: 60%, RVSP: 40 mmHg Thrombocytopenia, improving No active bleeding Not on any heparin/Lovenox for DVT prophylaxis Could not start SCDs due to lower extremity wounds Continue to monitor Homeless/methamphetamine abuse Requested medical social consultant consult Strongly recommended to quit meth abuse Hypokalemia, resolved Metabolic acidosis at normal anion gap - resolved Code status: Full code Diet: Regular diet DVT prophylaxis: Heparin Disposition: Continue care in PCU, continue antibiotics. Awaiting PT naila Spence MD Internal Medicine, PGY 2 Date of Service: Apr 10, 2025 Billing Provider: DARLENE BAEZ MD, SIVA, RES Apr 10, 2025 17:26
--- NOTE | 2025-04-10 19:06 | RADIOLOGY REPORT ---
ULTRASOUND ABDOMEN: REASON FOR EXAM: liver usg/elevated LFTs/H/o Hep c TECHNIQUE: Real-time sector scans in the transverse and longitudinal planes were obtained through th e abdomen. FINDINGS: The liver is of normal size and contour. The liver is diffusely echogenic. There is no int rahepatic biliary ductal dilatation. The common bile duct measures 4 mm. The gallbladder is not dist ended. No gallstones or sludge are identified. There is no gallbladder wall thickening nor perichole cystic fluid. There is no sonographic Roque's sign. The spleen is normal in size. The visualized portion of the pancreas is unremarkable. The right kidney measures 10.5 cm. The left kidney measures 11.7 cm. There is no hydronephrosis or nephrolithiasis. There is no evidence of focal renal mass or cyst. The visualized portions of the abdominal aorta demonstrate no evidence of aneurysmal dilatation. The visualized inferior vena cava is unremarkable. There is no free intraperitoneal fluid. IMPRESSION: The liver is diffusely hypoattenuating which may be secondary to steatosis or another diffuse hepatic process. Correlate clinically and with liver function tests.
[2025-04-10] MEDS: heparin, porcine 5000 units/ml vial SQ SCH (19:48)
[2025-04-11] VITALS (7 sets, daily range): BP systolic 109–148; BP diastolic 77–97; PULSE 67–76; RESP 14–19; TEMP 97.5–98.7; O2SAT 94–99
[2025-04-11 11:28] LABS: MEAN PLATELET VOLUME 8.6 FL (7.4-10.4); RED CELL DISTRIBUTION WIDTH 14.7 % (11.5-14.5)
[2025-04-11 11:39] LABS: CREATININE 0.83 MG/DL (0.40-0.90); TOTAL CARBON DIOXIDE 26.5 MMOL/L (24-32); eCRCL 78 ML/MIN; eGFR 72 ML/MIN
[2025-04-11 12:08] LABS: BANDS% (MANUAL) 1.0 % (0-10); LYMPHOCYTES % (MANUAL) 16.0 % (21-51); METAMYLEOCYTES% (MANUAL) 4.0 % (0-0); MONOCYTES % (MANUAL) 6.0 % (2-12); MYELOCYTES % (MANUAL) 1.0 % (0-0); NEUTROPHILS % (MANUAL) 72.0 % (42-75); PLATELET ESTIMATE NORMAL
--- NOTE | 2025-04-11 14:37 | PROGRESS NOTE- Residence ---
Progress Note - Resident Providers to CC Resident Creating Document: PATRICIA SHIELDS RES CC: DARLENE BAEZ MD ~ Antibiotic Timeout Antibiotic Ordered?: Yes Subjective Patient seen and examined today. Patient was comfortably sleeping in her bed without any complaints or acute overnight events. Objective Vital Signs Date Time Temp Pulse Resp B/P (MAP) Pulse Ox O2 Delivery O2 Flow Rate FiO2 04/11/25 13:46 16 04/11/25 11:00 98.1 72 111/80 (90) 98 Room Air 04/09/25 08:00 0.0 21 Result Diagram: 04/11/25 1110 04/11/25 1110 General: Alert, awake, oriented, not in acute distress HEENT: PERRLA, no icterus, pallor, lymphadenopathy, carotid bruit Respiratory system: Bilateral vesicular breath sounds heard, no adventitious breath sounds CVS: S1-S2 heard, no murmurs/rubs/gallop GI: Soft, nontender, no organomegaly, no guarding/rigidity, bowel sounds present Neuro: No focal neurological deficits present Extremities: 3+ edema present on the left lower extremity, 2+ pedal edema present in the right lower extremity, erythema with beefy red appearance, swelling and tenderness present on the posterior surface of the lower extremity spreading up to the knee and going upwards (redness improved). Bilateral about 3-4 cm wounds present with pus drainage on the lower part of shins. Multiple ulcers at various healing stages present. Skin: Warm and dry Coagulation Studies Laboratory Tests Test 04/08/25 19:38 04/10/25 01:53 Prothrombin Time 9.9 SECONDS (9.0-12.0) INR International Normalized Ratio 1.0 INR Activated Partial Thromboplast Time 30 SECONDS (22-32) Coagulation Comments Assessment Assessment This is a 49-year-old female with past medical history of hypertension, congestive heart failure, vertigo, bilateral chronic venous insufficiency status post bilateral ablation of the veins with chronic venous ulcer who transferred from [facility] in view of left leg cellulitis, bilateral lower limb chronic venous ulcer and incidentally detected coronary aneurysm. Admitted for further management Plan Plan Sepsis secondary to bilateral lower extremity cellulitis Bilateral chronic lower extremity nonhealing ulcers History of bilateral venous ablation for venous insufficiency No osteomyelitis DVT, ruled out Continue Zosyn 3.375 g IV q.8h and IV vancomycin (day 3) Wound cultures positive for Gram-positive cocci Bilateral fierro wound cultures positive for Gram-positive cocci Continue LR at 100 cc/hour Incidentally detected coronary artery aneurysms Positive methamphetamine Continue IV fluid resuscitation and follow up with Dr. Guerrier in the next 2-3 weeks. Appreciate recommendations. Mild hyponatremia, resolved Prerenal KAIN on CKD, resolved Hyperlipidemia ASCVD risk score 6.6% Continue atorvastatin 40 mg once daily Hypertension Takes lisinopril at home Hold medication as blood pressure is well-controlled without lisinopril EF: 60%, RVSP: 40 mmHg Homeless/methamphetamine abuse Requested social worker delinquency prevention consult Strongly recommended to quit meth abuse Hypokalemia, resolved Metabolic acidosis at normal anion gap - resolved Thrombocytopenia, resolved Code status: Full code Diet: Regular diet DVT prophylaxis: Heparin Disposition: Continue care in PCU, continue antibiotics. PT cleared for home discharge. Probable discharge in a day or two Patricia Shields MD Internal Medicine, PGY 2 Date of Service: Apr 11, 2025 Billing Provider: DARLENE BAEZ MD, SIVA, RES Apr 11, 2025 14:37
[2025-04-11] MEDS: vancomycin 125 MG/5 ML UD oral SOLN.RECON 5mL oral syringe (FIRVANQ) PO SCH (16:15)
[2025-04-11] MEDS: lactobacillus rhamnosus 10,000 MMU CELLS/CAPSULE PO SCH (20:58)
[2025-04-12 02:00] VITALS: BP 137/96; PULSE 80; RESP 18; TEMP 98.5; O2SAT 98
[2025-04-12 06:00] VITALS: BP 161/107; PULSE 86; RESP 18; TEMP 98.5; O2SAT 98
[2025-04-12 06:39] LABS: MEAN PLATELET VOLUME 8.6 FL (7.4-10.4); RED CELL DISTRIBUTION WIDTH 14.6 % (11.5-14.5)
[2025-04-12 06:56] LABS: CREATININE 0.78 MG/DL (0.40-0.90); TOTAL CARBON DIOXIDE 28.8 MMOL/L (24-32); eCRCL 83 ML/MIN; eGFR 78 ML/MIN
[2025-04-12 08:00] VITALS: RESP 18; O2SAT 98
[2025-04-12 11:00] VITALS: BP 160/103; PULSE 76; RESP 16; TEMP 98.1; O2SAT 97
[2025-04-12] MEDS ORDERED: LINE600T11 CORPAK (12:31)
[2025-04-12] MEDS ORDERED: AMLO5TAB16 PO (12:31)
[2025-04-12] MEDS ORDERED: ATOR20TA66 PO (12:31)
[2025-04-12] MEDS ORDERED: LACT1CAP26 PO (12:31)
--- NOTE | 2025-04-12 18:05 | DISCHARGE SUMMARY-Residence ---
Discharge Summary Providers to CC Resident Creating Document: PATRICIA SPENCE, RES CC: DARLENE BAEZ MD ~ Discharge Summary Admission Diagnosis: Cellulitis, coronary aneurysm Hospital Course DATE OF ADMISSION: 04/08/2025 DATE OF DISCHARGE: 04/12/2025 Discharge Diagnosis\Comment: Sepsis secondary to bilateral lower extremity cellulitis Bilateral chronic lower extremity nonhealing ulcers History of bilateral venous ablation for venous insufficiency Osteomyelitis, DVT, ruled out Incidentally detected coronary artery aneurysms Methamphetamine use disorder Mild hyponatremia, resolved Prerenal KAIN on CKD, resolved HLD HTN Homeless Operations\Procedures: None Consultants: None Complications: None Condition on DC: Stable New Medications: Amlodipine Besylate (Amlodipine Besylate) 5 Mg Tablet 1 TAB PO DAILY for 30 Days, #30 TAB 0 Refills Lactobacillus Rhamnosus (Culturelle) 10 Billion Cell Capsule 1 EACH PO BID for 30 Days, #60 CAP Linezolid (ZYVOX tablet) 600 Mg Tablet 600 MG CORPAK BID for 11 Days, #22 TAB Atorvastatin Calcium (Atorvastatin Calcium) 20 Mg Tablet 40 MG PO DAILY for 30 Days, #60 TAB Discontinued Medications: Lisinopril* (Lisinopril*) 40 Mg Tablet 1 TAB PO DAILY for 30 Days, #30 TAB Discharge Summary: A 49-year-old homeless female with PMH of HTN, CHF, bilateral chronic venous insufficiency s/p bilateral ablation of the veins presented from [place] in view of left leg cellulitis, bilateral chronic lower limb venous ulcers and incidentally detected coronary artery aneurysms. Patient was started on antibiotics and wound cultures revealed Gram-positive cocci (MRSA) patient was adequately treated with antibiotics and fluids in view of sepsis. Patient was tested positive for methamphetamine. Patient was adequately counseled and so cial services were consulted in view of homelessness and quitting methamphetamine use. At the time of admission patient was having sepsis requiring fluid resuscitation, electrolyte abnormalities and prerenal KAIN on CKD which resolved with fluid resuscitation and adequate management. Patient had continuous watery bowel movements requiring to be tested for C diff which was negative. Therefore patient was cleared for discharge without any isolation at this time. Infection control was also consulted in view of the above. Patient has increased LDL with ASCVD score of 6.6 requiring to start atorvastatin 40 mg. Patient was on lisinopril at home which was initially held but later in view of not having any comorbidities patient is started on amlodipine 5 mg that has been continued at home. Patient is physically and clinically stable for discharge. Physical examination at the time of discharge: General: Alert, awake, oriented, not in acute distress HEENT: PERRLA, no icterus, pallor, lymphadenopathy, carotid bruit Respiratory system: Bilateral vesicular breath sounds heard, no adventitious breath sounds CVS: S1-S2 heard, no murmurs/rubs/gallop GI: Soft, nontender, no organomegaly, no guarding/rigidity, bowel sounds present Neuro: No focal neurological deficits present Extremities: 3+ edema present on the left lower extremity, 2+ pedal edema present in the right lower extremity, erythema with beefy red appearance, swelling and tenderness present on the posterior surface of the lower extremity spreading up to the knee and going upwards (redness improved). Bilateral about 3-4 cm wounds present with pus drainage on the lower part of shins. Multiple ulcers at various healing stages present. Skin: Warm and dry Labs at discharge: WBC: 9.7, H/H: 11/31.9, platelet count: 223 Sodium: 137, potassium: 3.7, BUN: Nine, creatinine: 0.78 Imaging: Lower extremity CT: Moderate subcutaneous edema within the left lower extremity which could reflect cellulitis. Degenerative changes of the bilateral knees. There is focal [id number] articulation in the lateral most patellofemoral compartment on the left. Abdominal ultrasound: The liver is diffusely hypoattenuating which may be secondary to steatosis or another diffuse hepatic process Lower extremity MRI (left): Cellulitis/fasciitis. No drainable fluid collection/abscess. Lower extremity MRI (right): Presumed reactive myositis of the posterior compartment of the calf. Cellulitis /fasciitis without drainable fluid collection. Echo: Overall LVEF estimated at 60%. Arterial ultrasound: No sonographic evidence of a lower extremity arterial occlusion. Velocities as above. Chest x-ray: Borderline cardiomegaly with pulmonary venous congestion Discharge medications can be found above. Patient is discharged to the [facility] with the following recommendations: Follow up with your primary care within two weeks of discharge. We gave you antibiotics for another 11 days in view of MRSA and strep infection on your wounds. Please maintain compliance We gave you probiotic for a 30 day supply, please maintain compliance We started you on atorvastatin 40 mg once daily, please maintain compliance in view of high ASCVD risk score which is a score indicating your risk for future strokes. 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 Address: [facility] [address], [place], [address]. Contact number: Quitting of methamphetamine and any other IV drug abuse is strongly recommended We changed your blood pressure medication to amlodipine 5 mg once daily, please maintain compliance and re-evaluate with primary care for any possible alteration of medications based on your blood pressure controlled. [facility]MENT [facility] ON 04/18/25 AT 12:30 PM. COME IN TO THE [facility] AND YOU WILL BE DIRECTED FROM THERE. BRING INSURANCE CARDS, ID AND FILLED OUT NEW PATIENT PACKET. Please do not miss your wound care appointments. Return to ER or call 911 in view of chest pain, worsening wound or pus discharge. *Problems/Diagnosis: (1) Cellulitis Status: Acute (2) Coronary aneurysm Status: Acute (3) Hyponatremia Status: Acute (4) Sepsis Status: Acute (5) Acute kidney injury Status: Acute Total Time Spent on D/C: > 30 Minutes Date of Service: Apr 12, 2025 Billing Provider: DARLENE BAEZ MD Problem Qualifiers (1) Cellulitis: Site of cellulitis: extremity Site of cellulitis of extremity: lower extremity Laterality: unspecified laterality Qualified Codes: L03.119 - Cellulitis of unspecified part of limb (2) Sepsis: Sepsis type: sepsis due to unspecified organism Sepsis acute organ dysfunction status: with acute organ dysfunction Severe sepsis acute organ dysfunction type: acute renal failure Acute renal failure type: unspecified Severe sepsis shock status: without septic shock Qualified Codes: A41.9 - Sepsis, unspecified organism; R65.20 - Severe sepsis without septic shock; N17.9 - Acute kidney failure, unspecified PATRICIA SPENCE, RES Apr 12, 2025 18:05
[2025-04-13 06:32] LABS: HBSAG SCREEN Negative (Negative); HEP A AB, IGM Negative (Negative); HEP B CORE AB, IGM Negative (Negative); HEPATITIS C VIRUS ANTIBODY Reactive (Non Reactive)
== END 2025-04-12 15:00 | disposition home or self-care (01) | DRG 720 ==
LOC: ER 16:04 → ED HOLD 20:22 → PCU 3S 04-09
PROVIDERS: ADMIT Internal Medicine; ATTEND Family Medicine
DX: A41.9 Sepsis, unspecified organism (principal); E87.20 Acidosis, unspecified; N17.9 Acute kidney failure, unspecified; E87.1 Hypo-osmolality and hyponatremia; I50.9 Heart failure, unspecified; D69.6 Thrombocytopenia, unspecified; I13.0 Hypertensive heart and chronic kidney disease with heart failure and stage 1 through stage 4 chronic kidney disease, or unspecified chronic kidney disease; I25.41 Coronary artery aneurysm; R65.20 Severe sepsis without septic shock; I87.2 Venous insufficiency (chronic) (peripheral); F17.210 Nicotine dependence, cigarettes, uncomplicated; G62.9 Polyneuropathy, unspecified; M79.3 Panniculitis, unspecified; F10.90 Alcohol use, unspecified, uncomplicated; Y90.9 Presence of alcohol in blood, level not specified; N18.9 Chronic kidney disease, unspecified; L03.116 Cellulitis of left lower limb; L03.115 Cellulitis of right lower limb; L97.829 Non-pressure chronic ulcer of other part of left lower leg with unspecified severity; L97.819 Non-pressure chronic ulcer of other part of right lower leg with unspecified severity; M72.9 Fibroblastic disorder, unspecified; E78.5 Hyperlipidemia, unspecified; F15.10 Other stimulant abuse, uncomplicated; Z79.899 Other long term (current) drug therapy; Z91.040 Latex allergy status; Z91.013 Allergy to seafood; Z88.8 Allergy status to other drugs, medicaments and biological substances; Z59.00 Homelessness unspecified
CPT/HCPCS: 36415; 71045; 73700; 73721; 76700; 80048; 80053; 80061; 80202; 80305; 80320; 81001; 82550; 82570; 83036; 83605; 83735; 83880; 83930; 83935; 84132; 84133; 84145; 84300; 85007; 85025; 85610; 85651; 85730; 86140; 86705; 86709; 86803; 87040; 87070; 87075; 87077; 87081; 87102; 87186; 87207; 87324; 87340; 87449; 87493; 87522; 93005; 93306; 93925; 96374; 97116; 97161; 99285; A6209; A6212; A6223; A6449; A6590; G0378; J1644; J2270; J2543; J3373; J7030; J7040; J7120